=== PATIENT | female | born 1975 | race Two or more races ===

== ENCOUNTER 2020-04-14 06:12 | Emergency (ER) | payer OTHER ==
[~2020-04-14] VITALS: Ht 160 cm; Wt 65.8 kg
[2020-04-14 06:42] VITALS: BP 130/80
--- NOTE | 2020-04-14 06:50 | NUR ---
came to er complaints of earache since last night denies any other problem
[2020-04-14] MEDS ORDERED: IBUPROFEN600 M1 ORAL (06:51)
[2020-04-14] MEDS ORDERED: AMOXICILLIN500 MG ORAL (06:51)
[2020-04-14] MEDS ORDERED: Tylenol #3 tab (300mg/30mg) ORAL ONE (07:00)
--- NOTE | 2020-04-14 07:00 | NUR ---
meds given as orderd
[2020-04-14] MEDS ORDERED: ACETAMINOPHEN-1 EAC1 ORAL (07:05)
--- NOTE | 2020-04-14 07:15 | Emergency Room Report ---
History of Present Illness General Chief Complaint: Earache Present Illness HPI Disclaimer: Please note that this report is being documented using Send the [employer] technology. This can lead to erroneous entry secondary to incorrect interpretation by the dictating instrument. HPI: 44-year-old female presents with dental and ear pain. She describes it as right-sided radiating to her right ear. Worse with palpation. She denies any fevers or trauma. She has a history of poor dental hygiene. She denies any nausea or vomiting PMH: Diabetes PSH: Reviewed Social Hx: Patient is an active smoker Allergies: Coded Allergies: MORPHINE (Verified Allergy, Severe, 04/14/20) COVID-19 Screening Contact w/high risk pt: No Experienced COVID-19 symptoms?: No COVID-19 Testing performed [employer]: No Patient History Reviewed Nursing Documentation: PMH: Agreed; PSxH: Agreed Review of Systems All Other Systems: negative except mentioned in HPI Physical Exam Vital Signs Date Time Temp Pulse Resp B/P (MAP) Pulse Ox O2 Delivery O2 Flow Rate FiO2 04/14/20 06:33 98.1 86 18 130/80 (97) 98 Room Air Sp02 EP Interpretation: reviewed, normal General Appearance: well appearing, no apparent distress Head: normocephalic, atraumatic Eyes: bilateral eye PERRL, bilateral eye EOMI ENT: hearing grossly normal, TMs + canals normal, moist mucus membranes, other - Dental tenderness along the right posterior lower molar. Bilateral TM normal Neck: full range of motion, supple Respiratory: lungs clear, normal breath sounds, no rhonchi, no respiratory distress, no retraction, no wheezing Cardiovascular #1: normal peripheral pulses, regular rate, rhythm, no murmur Gastrointestinal: non tender, soft, non-distended, no guarding Neurologic: alert, oriented x3, no focal defects Skin: normal color, warm/dry Medical Decision Making Diagnostic Impression: Primary Impression: Pain, dental ER Course Patient presents with dental pain and right ear pain. Differential included but not limited to dental abscess, dental caries, otitis media to name a few. On exam her bilateral TMs were normal. She had mild dental tenderness on the right. Will prescribe pain control and p.o. antibiotic. Have her follow-up with her dentist today. Otherwise nontoxic no acute distress stable for discharge. Last Vital Signs Date Time Temp Pulse Resp B/P (MAP) Pulse Ox O2 Delivery O2 Flow Rate FiO2 04/14/20 06:42 98.1 18 130/80 98 Room Air 04/14/20 06:33 86 Disposition: HOME, SELF-CARE Condition: Stable Scripts Acetaminophen With Codeine (T#3) (TYLENOL #3 TAB*) Y Tab 1 TAB ORAL Q6 PRN for For Pain, #8 TAB Prov: Jason Garcia M.D. 04/14/20 Amoxicillin* (AMOXIL*) 500 Mg Capsule 500 MG ORAL BID, #14 CAP Prov: Jason Garcia M.D. 04/14/20 Referrals: [facility],REFERR[facility] (PCP) Patient Instructions: Dental Caries, [id number] Additional Instructions: Please follow-up with your dentist today. Please return for any worsening symptoms or concerns. Jason Garcia M.D. Apr 14, 2020 07:14
--- NOTE | 2020-04-14 07:15 | NUR ---
discharged home with instruction and rx follow up with pmd
[2020-04-14 07:17] VITALS: BP 130/80
== END 2020-04-14 07:18 | disposition home or self-care (01) ==
LOC: EMR 06:30
DX: K08.89 Other specified disorders of teeth and supporting structures (principal); E11.9 Type 2 diabetes mellitus without complications; F17.200 Nicotine dependence, unspecified, uncomplicated; Z88.5 Allergy status to narcotic agent
CPT/HCPCS: 99282